=== PATIENT | male | born 1945 ===

== ENCOUNTER 2020-05-12 14:48 | Emergency (ER) | payer OTHER, SELFPAY ==
[2020-05-12 14:52] VITALS: BP 149/91; PULSE 82; RESP 16; TEMP 36.7; O2SAT 98
--- NOTE | 2020-05-12 15:15 | ED.GENADUL_ITS ---
Discharge Plan Disposition Patient Disposition: HOME Condition: Stable Discharge Details Chief Complaint: Orthopedic Clinical Impression: Bursitis, olecranon Primary Care Provider: Vero,Local ED Provider: Dillon Deleon Home Meds and New Rx's Prescriptions: Continued atorvastatin 20 mg Tablet RF: 0 meloxicam [Mobic] 7.5 mg Tablet 7.5 mg PO DAILY RF: 0 Discharge Instructions Instructions: Elbow Bursitis (ED) Additional Instructions: At this time there are no signs of infection. Given this was recently drained in the last month I do not believe that draining it here in the ER will solve your problem. As we discussed you may use a neoprene sleeve or Rosendo wrap for comfort. You may also try cool and/or warm compresses every 2 hours for 20 minutes. Please watch for new or worsening symptoms and return to the ER for any concerns. I recommend that you reach out to your orthopedic, Dr. Tran, on Wednesday for prompt outpatient reevaluation. Medical Decision Making 74-year-old gentleman, [id number], presents for a reoccurring right olecranon bursitis. It has been going on for nearly a month, it was drained by his orthopedic, and he has subsequently been sticking a pin in the area to help it drain. He is requesting that we drain it now and give steroids. Patient appears well, nontoxic. Patient has full range of motion, neuro, vascular, tendon intact. No signs of septic joint, septic bursitis, cellulitis, etc. I explained to the patient that he cannot safely have steroids injected in his elbow multiple times in such a short timeframe. My concern is that this is reoccurring, potentially needs to have his bursa repaired as opposed to simply draining the olecranon bursitis. I did discuss with Dr. Fox who agreed not to drain the bursitis here in the ER. I explained my thought process the patient and he was agreeable. We discussed signs and symptoms of infection and reasons to immediately return to the ER, otherwise contact his orthopedic on Wednesday for outpatient evaluation and hopefully more definitive care. HPI General Mode of arrival: ambulatory . Date/Time Provider Initiated Documentation: 05/12/20 15:01 . Information obtained by: patient . HPI Narrative: This is a 74-year-old gentleman, [id number], history of hyperlipidemia, presenting to the ER requesting that we drain his right elbow and inject steroids. 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 He was evaluated by his orthopedic on 04-18-2028, Dr. Tran, had it drained and steroids injected. Denies recent illness or trauma. Subsequently the elbow filled back up and he has been using a pen at home to help drain it. He decided he was going to stop self draining for fear of infection and came to the ER. Last Wednesday at [facility] he had a imaging study where they obtained IV access in the right arm, placed a tourniquet, and placed on IV contrast, he wonders if this may have made his arm worse. He denies fever, rash on his body, numbness, tingling, weakness. Related Data Home Medications Medication Instructions Recorded Confirmed atorvastatin 05/12/20 meloxicam [Mobic] 7.5 mg PO DAILY 05/12/20 05/12/20 Allergies Allergy/AdvReac Type Severity Reaction Status Date / Time No Known Allergies Allergy Unverified 05/12/20 14:57 General Stated Complaint: Orthopedic JUVENAL: 3 Review of Systems Constitutional Constitutional: Denies fever(s) and Denies weakness Musculoskeletal Musculoskeletal: Denies arthralgias, Reports joint swelling, Denies numbness, Denies stiffness and Denies tingling Integumentary/Breasts Skin/Breast: Denies rash Neurologic Neurologic: Denies numbness, Denies tingling and Denies weakness [facility] Social History Smoking/Tobacco Use Status: Former Tobacco Use Alcohol Intake: current Alcohol Intake frequency: a few times a week Substance use type: marijuana Do you feel safe at home: Yes Do you feel safe in your relationship?: Yes Exam Const General: cooperative, healthy appearing, comfortable and no acute distress Orientation: alert, awake and oriented x3 HENMT Head: normal to inspection, normocephalic and atraumatic Mouth: moist mucous membranes Eyes Conjunctivae: conjunctivae normal Neck Neck: normal visual inspection, full ROM, trachea midline and supple Resp Effort & Inspection: normal respiratory effort and able to speak in complete sentences Cardio Rate: regular rate Rhythm: regular rhythm Skin General skin exam: no rashes or lesions noted Neuro General: patient alert, patient awake, moves all extremities and no focal motor deficits Sensory Exam: no sensory deficits noted Extrem Right upper extremity: full ROM, normal capillary refill and elbow/forearm Details: swelling Location: of the olecranon and normal ROM; no tenderness and no unusual warmth Left upper extremity: normal to inspection, full ROM and normal capillary refill Psych Appearance: grossly normal Mental Status: mental status grossly normal Course Vital Signs Vital signs: Vital Signs Temperature 36.7 C 05/12/20 14:52 Pulse 82 05/12/20 14:52 Respiratory Rate 16 05/12/20 14:52 Blood Pressure 149/91 H 05/12/20 14:52 Pulse Oximetry 98 05/12/20 14:52 Temperature 36.7 C 05/12/20 14:52 Temperature Source Skin 05/12/20 14:52 Pulse 82 05/12/20 14:52 Respiratory Rate 16 05/12/20 14:52 Respiratory Effort Non-Labored 05/12/20 14:56 Blood Pressure 149/91 H 05/12/20 14:52 Blood Pressure Position Sitting 05/12/20 14:52 Pulse Oximetry 98 05/12/20 14:52 Oxygen Delivery Method Room Air 05/12/20 14:52 Oxygen Flow Rate 0 05/12/20 14:52 Pain Level 0 05/12/20 14:52
== END 2020-05-12 15:22 | disposition home or self-care (01) ==
LOC: ER 15:22
PROVIDERS: Emergency Provider Physician Assistant
DX: M70.21 Olecranon bursitis, right elbow (principal)
CPT/HCPCS: 99281